=== PATIENT | female | born 1970 | race Caucasian/White ===

== ENCOUNTER 2023-07-14 02:38 | Day surgery (SDC) | payer OTHER, SELFPAY ==
--- NOTE | 2023-07-04 13:50 | SUR.PREOP ---
Report to the Outpatient Waiting Room, entrance under the green pavilion located off [facility], at time 0745 on date 07/14/23. Planned Procedure Time: 0945. Time changes happen often and if your time is changed the preop area will call you the afternoon before. - You and your visitor will be asked to self-screen and do not enter if you have any COVID symptoms. - A mask is optional within the hospital at this time. Patients may have clear liquids (water, carbonated beverages, clear teas, apple juice) until 3 hours prior to surgery with a maximum of 20 ounces. - NO CLEAR LIQUIDS AFTER 0645 - No food from midnight until time of surgery - Infants may have breast milk until 4 hours before surgery, formula 6 hours prior to surgery. - Children will be allowed to drink immediately following surgery. If applicable, please bring a bottle or sippy cup to assist with drinking. Juice, water, soda, and popsicles are readily available. For infants on formula, please bring formula the day of surgery. Pacifiers are allowed. Take the following medications with a SIP of water the morning of surgery: N/A DO NOT STOP ANY OF YOUR OTHER PRESCRIPTION MEDICATIONS PRIOR TO SURGERY ?EXCEPT THE FOLLOWING Medications to discontinue per physician STOP VITAMINS/SUPPLEMENTS 07/11/23 Please no make-up, nail japanese, hairspray, perfume, deodorant, or body powder the day of surgery. No jewelry (including any body piercings) or valuables the day of surgery, leave them at home. Please take a shower or bath the night before, or the morning of, surgery with an antibacterial soap. Wear comfortable, loose fitting clothing. Children are encouraged to wear pajamas. - Jewelry must be removed prior to entering the operating room. Rings and piercings that are not removed may be cut off. - The hospital will not accept responsibility for valuables. - Please leave all valuables, including medications, at home the day of surgery. If you are going home after surgery, a licensed local company hazmat driver must drive you home. - NO public transportation without another adult if you receive anesthesia. - We recommend that an adult stay with you for 24 hours following discharge. - We also recommend that you do not drive, make important decision, drink alcoholic beverages, or take any drugs that were not prescribed by your health care provider for at least 24 hours after your discharge time. For Pediatric surgeries, we recommend two adults accompany the child home. Follow any additional instructions given to you from your surgeon. If you or anyone in your household have experienced Covid symptoms in the past week, please notify your surgeon or the nurse liaison at the phone number below for possible testing. Telephone instructions given to JOSEE MILLER and asked if any additional questions and then verbalized understanding. Patient advised to call surgeon office or pre surgery nurse liaison [phone] if any additional questions.
[2023-07-04 14:04] VITALS: BMI 37.5
--- NOTE | 2023-07-08 18:26 | PM.IMHP ---
H&P: HPI History of Present Illness Date/Time: 07/08/23 18:26 Chief Complaint: incontinence Narrative: 53 yo with bothersome DARLING Review of Systems Review of Systems: All systems reviewed & are unremarkable except as noted in HPI and below [facility] Social History Social History Smoking status: Never smoker Living arrangements: with family Spiritual care concerns: No Meds Home Medications and Allergies Home Medications Medication Instructions Recorded Confirmed Type Adult One Daily Multivitamin 1 cap PO DAILY 07/04/23 07/04/23 History Glucosamine Chondroitin 2 tablet PO DAILY 07/04/23 07/04/23 History atorvastatin 10 mg tablet 10 mg PO DAILY 07/04/23 07/04/23 History benazepril 10 mg tablet 10 mg PO DAILY 07/04/23 07/04/23 History hydrochlorothiazide 12.5 mg capsule 12.5 mg PO DAILY 07/04/23 07/04/23 History loratadine 10 mg tablet (Claritin) 10 mg PO DAILY 07/04/23 07/04/23 History Allergies Allergy/AdvReac Type Severity Reaction Status Date / Time No Known Allergies Allergy Verified 07/04/23 13:59 Exam Narrative: NAD Normal breathing + urethral mobilit + rectocele-asymptomatic Assessment and Plan Assessment and plan (1) DARLING (stress urinary incontinence, female): Code(s): N39.3 - Stress incontinence (female) (male) Status: Acute Assessment and Plan: urethral sling. Risks, bennifits, alternative discussed and documented in chart
--- NOTE | 2023-07-13 15:17 | P.PNAN_ITS ---
Anes - Initial Pre Proc Eval Procedure: Operation Date: 07/14/23 09:45 Proposed Procedures p Urethral Sling - Mahesh Mims MD Date/Time: 07/13/23 15:17 Surgeon: Mahesh Mims MD Pre Op Diagnosis: Stress Incont Patient Data Age: 53 Gender: F Height: 1.57 m Weight: 93 kg Allergies Allergy/AdvReac Type Severity Reaction Status Date / Time No Known Allergies Allergy Verified 07/14/23 08:40 Home Medications Medication Instructions Recorded Confirmed Type Adult One Daily Multivitamin 1 cap PO DAILY 07/04/23 07/14/23 History Glucosamine Chondroitin 2 tablet PO DAILY 07/04/23 07/14/23 History atorvastatin 10 mg tablet 10 mg PO DAILY 07/04/23 07/04/23 History benazepril 10 mg tablet 10 mg PO DAILY 07/04/23 07/04/23 History hydrochlorothiazide 12.5 mg capsule 12.5 mg PO DAILY 07/04/23 07/04/23 History loratadine 10 mg tablet (Claritin) 10 mg PO DAILY 07/04/23 07/04/23 History Patient hx anesthesia problems: none Family hx anesthesia problems: none Results Review: All pre-operative results and documents have been reviewed as part of the pre- operative evaluation. PMFSH Past Medical History Medical History (Updated 07/13/23 @ 15:18 by Justen Viera DO) Hyperlipidemia Hypertension Surgical History Surgical History (Updated 07/13/23 @ 15:18 by Justen Viera DO) History of tubal ligation Social History Social History Smoking status: Never smoker Living arrangements: with family Spiritual care concerns: No Anes - Eval Final PreProcedure Day of Procedure 07/13/23 15:17 Patient weight: obese Heart: regular rate and rhythm Lungs: clear to auscultation Airway: Mallampati scale class II Neurological: alert and oriented Last oral intake: >/= 8 hours ASA classification: III Emergent: no Anesthetic plan: proceed Anesthesia type and monitoring: general GIVS and standard monitoring Results Review: All pre-operative results and documents have been reviewed as part of the pre- operative evaluation. Informed Consent: The patient's anesthetic plan and its attendant risks and benefits were discussed with the patient/family/POA. Questions were solicited and answers provided to the satisfaction of the patient/family/POA.
--- NOTE | 2023-07-14 07:19 | WPDHPUPDATE1 ---
History and Physical Update Update Date/Time: 07/14/23 07:19 History and Physical has been reviewed, including an updated exam of the patient. There are NO changes in the patient's condition. Risks, benefits, and alternatives have been discussed and questions answered. Patient agrees to proceed with procedure.
[2023-07-14 07:55] VITALS: BP 146/80; PULSE 69; RESP 14; TEMP 36.9; O2SAT 98; BMI 37.5
[2023-07-14] MEDS: LACTATED RINGERS 1,000 ML 30 ML IV CONT (08:55)
[2023-07-14] MEDS: ceFAZolin 2 GM/D5W 50 ML 2 GM/50 ML BAG IVPB (09:59)
[2023-07-14] MEDS: BUPIVACAINE/EPINEPHRINE 0.5% 10 ML VIAL INFILTRATE (10:18)
[2023-07-14 10:36] VITALS: BP 129/69; PULSE 74; RESP 14; O2SAT 93
--- NOTE | 2023-07-14 10:37 | W.PM.PROC2 ---
Procedure Note - Detailed Date of Procedure 07/14/23 Pre-op Diagnosis Stress Incont Post-op Diagnosis Same Procedure Performed mid urethral sling cystoscopy Surgeon Mahesh Mims MD Anesthesia MAC and Local Indications This is a female with confirm stress urinary incontinence. She desires surgical correction. She understands the risks of bleeding, infection, injury to the urinary tract, vaginal mesh extrusion, urinary tract mesh erosion, obstructive voiding requiring a secondary procedure, hip and leg pain, dyspareunia, inability to improve overactive bladder symptoms. She agrees to proceed. Description of Procedure She was correctly identified. Informed consent obtained. She was brought the operating room. She was given appropriate anesthesia. She was given appropriate perioperative antibiotics. A time-out performed. I marked out the site of the inner thigh incisions. I anesthetized the skin and made those incisions. I anesthetized the anterior vaginal wall over the mid urethra. I made a 1 cm incision. I dissected out laterally taking great care not to injure the refilled vaginal wall. I passed the helical trocars. First on the left. Then on the right. I did this from the thigh incision towards the vaginal incision. The sling was connected to the trocars and brought out through the thigh incision. I tensioned the sling appropriately. I cut and the plastic sheaths. I then closed the incision with 2 0 Vicryl. On cystoscopy there is no tumors or surgical artifact. There was no surgical artifact in the urethra. I cut the excess sling material. Close incisions with glue. She was awakened and transferred to the PACU in stable condition. Implants Urethral sling Drains No Packing No Pathology None sent Complications No immediate complications Condition Stable Disposition PACU
[2023-07-14 11:05] VITALS: BP 136/71; PULSE 57
[2023-07-14 11:35] VITALS: BP 127/64; PULSE 65
[2023-07-14 11:50] VITALS: BP 141/67; PULSE 58
== END 2023-07-14 11:53 | disposition home or self-care (01) ==
PROVIDERS: PCP Family Medicine; Visit Provider Urology
PROC: (CPT 57288; principal; 2023-07-14 09:45)
DX: N39.3 Stress incontinence (female) (male) (principal)
CPT/HCPCS: 57288; C1771; J0690; J2250; J2704; J3010; J7030; J7120